=== PATIENT | male | born 1980 | race Caucasian/White ===

== ENCOUNTER 2020-06-15 15:23 | Emergency (ER) | payer MEDICAID ==
[~2020-06-15] VITALS: Ht 182.9 cm; Wt 95.7 kg
[2020-06-15 15:26] VITALS: BP 145/89
--- NOTE | 2020-06-15 15:29 | NUR ---
Pt ambulated to ER bed 3 with a steady gait.
--- NOTE | 2020-06-15 15:42 | NUR ---
40 Y/O MALE C/O PAIN TO LEFT ARM 10 DESCRIBES SHARP, THROBBING RADIATES FROM LEFT HAND TO ELBOW. PT STATES HE WAS HAMMERING METAL ABOUT X2HRS AGO AND BELIEVES A METAL CHIP MAY HAVE PENERATED HIS LEFT ARM. ON ASSESSMENT SMALL LACERATION NOTED TO FOREARM, NOT ACTIVELY BLEEDING. DENIES PMH NKA
--- NOTE | 2020-06-15 16:01 | NUR ---
Dr. Diego at pt bedside for further evaluation.
[2020-06-15] MEDS ORDERED: LIDOCAINE/EPI 1% 1:100000 20 ML VIAL INJ ONE (16:05)
--- NOTE | 2020-06-15 16:21 | NUR ---
Alysia wright in ED - 06/15/20 at [address] Diego at bedside for further evaluation.
--- NOTE | 2020-06-15 16:21 | NUR ---
Dr. Diego at pt bedside for procedure.
[2020-06-15] MEDS ORDERED: cephALEXin 500 MG CAP PO ONE (16:55)
[2020-06-15] MEDS ORDERED: SULFAMETH/TRIMETH DS 800/160MG 1 TAB PO ONE (16:55)
[2020-06-15] MEDS ORDERED: BACITRACIN OINT 500 UNITS/GM PKT TP ONE (16:56)
[2020-06-15] MEDS ORDERED: SULF-59 PO (16:59)
[2020-06-15] MEDS ORDERED: CEPH500C16 PO (16:59)
[2020-06-15] MEDS ORDERED: IBUP-2213 PO (16:59)
--- NOTE | 2020-06-15 16:59 | NUR ---
applied dressing to left arm without any issues
[2020-06-15 17:30] VITALS: BP 145/89
--- NOTE | 2020-06-15 17:30 | NUR ---
Patient discharged with v/s stable. Written and verbal after care instructions given and explained. Patient verbalized understanding. Ambulatory with steady gait. All questions addressed prior to discharge. Advised to follow up with PMD.
== END 2020-06-15 15:40 | disposition home or self-care (01) ==
LOC: MED 15:23
DX: S51.822A Laceration with foreign body of left forearm, initial encounter (principal); Z79.899 Other long term (current) drug therapy; W22.8XXA Striking against or struck by other objects, initial encounter; Y93.89 Activity, other specified; Y92.89 Other specified places as the place of occurrence of the external cause; Y99.8 Other external cause status
CPT/HCPCS: 12031; 73090; 90471; 90715; 99284; J2001; 99283